=== PATIENT | male | born 1995 | race Hispanic/Latino ===

== ENCOUNTER 2024-06-30 19:17 | Emergency (ER) | payer BC ==
[~2024-06-30] VITALS: Ht 162.6 cm; Wt 88.5 kg
[2024-06-30] MEDS: ALBUTEROL/IPRATROPIUM 3 ML NEB NEB ONE (20:18)
[2024-06-30] MEDS ORDERED: VENTOLIN HFA18 GM INH (20:42)
[2024-06-30 20:59] VITALS: PULSE 90; RESP 16; TEMP 97.9
[2024-06-30 21:02] VITALS: BP 166/96; PULSE 90; RESP 16; TEMP 97.9; O2SAT 97
== END 2024-06-30 21:04 | disposition home or self-care (01) ==
LOC: FSED 19:40
DX: R06.2 Wheezing (principal); I10 Essential (primary) hypertension
CPT/HCPCS: 71046; 99283